=== PATIENT | male | born 1955 | race Caucasian/White ===

== ENCOUNTER → 2019-05-19 | Outpatient (CLI) | payer OTHER ==
[~2019-05-19] MED LIST: ADULT LOW DOSE81 MG PO; COLACE 100 MG100 MG; IBUPROFEN200 M2 PO; LISINOPRIL20 MG PO; MULTIVITAMINS PO; NORCO 5-325 TA1 EACH PO; RELAFEN750 MG PO; ROBAXIN 750 MG750 M1 PO; TOPROL XL25 MG PO; TRAMADOL 50 MG50 MG PO; TYLENOL P.M. E1 EAC3 PO; VALACYCLOVIR500 MG PO
== END ==
LOC: MRI 08:29
DX: M48.02 Spinal stenosis, cervical region (principal); M25.78 Osteophyte, vertebrae; M47.22 Other spondylosis with radiculopathy, cervical region; M50.121 Cervical disc disorder at C4-C5 level with radiculopathy

== ENCOUNTER → 2019-06-06 | Outpatient (CLI) | payer OTHER ==
[~2019-06-06] VITALS: Ht 182.9 cm; Wt 74.8 kg
[~2019-06-06] MED LIST changes: +ACETAMINOPHEN PO; +AMITRIPTYLINE H10 M3 PO; +LISINOPRIL-HCT1 EAC2 PO; -LISINOPRIL20 MG PO; +NEURONTIN 300300 M1 PO; +PROTONIX40 M2 PO; +ZANAFLEX4 M1 PO
[2019-06-06 09:19] VITALS: BP 133/83
--- NOTE | 2019-06-06 09:21 | NUR ---
Pain Clinic Assessment: 1. History of Osteoarthritis: Not Applicable History of Rheumatoid Arthritis: Not Applicable 2. Height: 6 ft. 0 in. 182.9 cm. Weight: 165.0 lb. oz. 74.844 kg. Patient's BMI: 22.4 3. Vital Signs: BP: 133/83 Pulse: 89 Resp: 14 Temp: 02 Sat: 96 ECG Mon: 4. Pain Intensity: 8 5. Fall Risk: Dizziness: N Needs help standing or walking: N Fallen in the last 3 months: N Fall risk comments: 6. Patient on Blood Thinner: None 7. History of Hypertension: Y 8. Opioid Therapy greater than 6 weeks: N Opiate Contract Signed: 9. Risk Assessment Tool Provided: Opioid Risk Tool 10. Functional Assessment Tool: 11. Recreational Drug Use: Past greater than 3 mos Drug Type: MARJUANA Tobacco Use: Never Smoker Tobacco Type: Amount or Packs/day: How Many Years: Alcohol Use: Yes Frequency: Weekly Quant: 1
--- NOTE | 2019-06-25 08:03 | HPC ---
[facility] [address] [place] [address] PAIN MANAGEMENT CONSULTATION Name: RONY ACUÑA Room #: REG PATTI PeckTonyJuan José.#: [id number] Admission: 06/06/19 Attend Phys: Rosalino Hernandez MD Discharge: Date of : 53 Report #: [id number] THIS REPORT FOR: cc: Francesco Littlejohn MD, Neal A. MD Brown,Rosalino Ennis MD ~ CC: Rosalino Littlejohn DATE OF SERVICE: 06/06/2019 CHIEF COMPLAINT: Neck pain. HISTORY OF PRESENT ILLNESS: The patient is a 64-year-old gentleman who has been referred to the pain clinic for evaluation of neck pain and discomfort. He has been experiencing some pain in his neck with radiation down into his left shoulder blade and arm. This has been problematic and worsening over the last few weeks. He has had surgery in the past. This was in 07/2011. This is for sharp pain in his right shoulder. He then started to notice pain in the left side and has made sleep more difficult. Notes that the pain is worse when he moves his neck. Long Term, he has noticed pain since 2001. Pain is worse when he is turning his neck or bending his head. not quite as problematic if he holds it still. Described as a steady discomfort with shooting discomfort and annoying sensation. Rates it as an 8/10 at this juncture. ALLERGIES: SULFA ANTIBIOTICS. CURRENT MEDICATIONS: Lisinopril 25 mg and Protonix 40 mg. Deltasone tablets taper 10 mg, Valtrex 500 mg, and tizanidine 4 mg p.r.n. muscle spasms. PAST MEDICAL HISTORY: Hypertension, Peacock's esophagus, cervical radiculopathy. PAST SURGICAL HISTORY: C6-C7 surgery per the patient report in 2011. REVIEW OF SYSTEMS: Generally unremarkable. Generally good health. IMAGING DATA: 1. MRI of the cervical spine dated 05/18/2019. C3-C4, there is a broad-based central disk osteophyte complex, which abuts the anterior spinal cord. AP diameter of the thecal sac is narrowed to 9 mm. consistent with mild central spinal stenosis. No neural foraminal narrowing. Findings unchanged. 2. At C4-C5, there is a generalized disk bulge with posterior lateral uncovertebral joint osteophyte formation and mild bilateral posterior facet degenerative changes. The disk bulge abuts the anterior aspect of the spinal cord and narrows the AP diameter of the thecal sac to 9 mm. No significant [facility] [address] [place] [address] PAIN MANAGEMENT CONSULTATION Name: RONY ACUÑA Room #: REG [facility].#: [id number] Admission: 06/06/19 Attend Phys: Rosalino Hernandez MD Discharge: Date of : 53 Report #: [id number] neural foraminal narrowing. Findings are unchanged. 3. At C5-C6, there is a mild, right posterior facet degenerative change. Minimal uncovertebral joint osteophyte formation. AP diameter of the thecal sac measures 11 mm. These findings are unchanged. 4. At C6-C7, the patient is status post anterior cervical spinal fusion with fixation plate and screws, which creates mild susceptibility artifact. The AP diameter of the thecal sac remains 11 mm. No significant central spinal stenosis or neural foraminal narrowing. 5. At C7-T1, there has been interval development of a broad-based central disk protrusion. AP dimensions of the thecal sac is narrowed to 6 mm consistent with severe central spinal stenosis. No significant neural foraminal narrowing is seen. PAIN CLINIC ASSESSMENT/PQRS: 1. The patient has a history of osteoarthritis in the neck area. He is not being treated for rheumatoid arthritis. 2. Height 6 feet, weight 165 pounds, BMI is 22.4. 3. Vital signs: Blood pressure 133/83, pulse 89, respiratory rate 14, room air saturation 96%. 4. Pain intensity 8/10. 5. Fall history: The patient has not fallen in the last 3 months. 6. Blood thinner. The patient is not on a blood thinning medication. 7. Hypertension. The patient is being treated for hypertension. 8. Opioids greater than 6 weeks. The patient is not on opioid regimen. 9. Risk assessment tool, low for opioid use. 10. Functional assessment tool 28/70. 11. Recreational drug use, the patient denies. 12. Smoker tobacco, the patient has never smoked. 13. Alcohol. The patient uses alcoholic beverages on a weekly basis. PHYSICAL EXAMINATION: GENERAL: The patient is a well-developed, well-nourished white male. Appears his stated age. He is alert and oriented x 3. His affect is appropriate. Speech is fluent. HEENT: Normocephalic, atraumatic. Extraocular eye muscles intact. Sclerae nonicteric. Mucous membranes are moist. NECK: Without adenopathy or JVD. EXTREMITIES: The patient does have some pain and discomfort on the left side with pain radiating down his arm on the left side to the hand with numbness in his fingers. Notes some weakness in this area. Notes that certain movements exacerbate his pain. Spurling test is positive with pressure on the left side with pain radiating down into his left arm. RECOMMENDATIONS: We discussed treatment options with the patient. At this juncture, we will try a conservative approach initially. The patient will try amitriptyline 10 mg 2 tablets at bedtime. He will also try gabapentin 300 mg 1 [facility] [address] [place] [address] PAIN MANAGEMENT CONSULTATION Name: RONY ACUÑA Room #: REG [facility]..#: [id number] Admission: 06/06/19 Attend Phys: Rosalino Hernandez MD Discharge: Date of : 53 Report #: [id number] p.o. t.i.d. Should his pain continue to be quite problematic, we would then consider the possibility of a cervical epidural steroid injection. A model was used to indicate the area of probable pathology. A point by point explanation of the patient's problem and findings were reviewed with him. He states that he understands. We would like to thank you for letting us participate in his care. We hope he continues to improve. <ELECTRONICALLY SIGNED> By: Rosalino Hernandez MD 06/25/19 0803 [id number] Rosalino Hernandez MD /nt
== END ==
LOC: PAIN 08:19
DX: M54.2 Cervicalgia (principal); Z88.2 Allergy status to sulfonamides; Z88.8 Allergy status to other drugs, medicaments and biological substances; Z79.899 Other long term (current) drug therapy

== ENCOUNTER → 2019-07-04 | Outpatient (CLI) | payer OTHER ==
[~2019-07-04] VITALS: Ht 182.9 cm; Wt 77.6 kg
[~2019-07-04] MED LIST changes: +AMITRIPTYLINE H25 M3 PO; +NEURONTIN300 MG PO
[2019-07-04 08:22] VITALS: BP 136/83
--- NOTE | 2019-07-04 08:31 | NUR ---
Pain Clinic Assessment: 1. History of Osteoarthritis: Not Applicable History of Rheumatoid Arthritis: Not Applicable 2. Height: 6 ft. 0 in. 182.9 cm. Weight: 171.0 lb. oz. 77.565 kg. Patient's BMI: 23.2 3. Vital Signs: BP: 136/83 Pulse: 80 Resp: 18 Temp: 02 Sat: 96 ECG Mon: 4. Pain Intensity: 8 5. Fall Risk: Dizziness: Y Needs help standing or walking: N Fallen in the last 3 months: N Fall risk comments: 6. Patient on Blood Thinner: None 7. History of Hypertension: Y 8. Opioid Therapy greater than 6 weeks: N Opiate Contract Signed: 9. Risk Assessment Tool Provided: Opioid Risk Tool 10. Functional Assessment Tool: 11. Recreational Drug Use: Past greater than 3 mos Drug Type: Tobacco Use: Never Smoker Tobacco Type: Amount or Packs/day: How Many Years: Alcohol Use: Yes Frequency: Quant:
--- NOTE | 2019-07-11 12:49 | HPC ---
[facility] [address] [place] [address] PAIN MANAGEMENT CONSULTATION Name: RONY ACUÑA Room #: REG PATTI PeckTonyJuan José.#: [id number] Admission: 07/04/19 Attend Phys: Rosalino Hernandez MD Discharge: Date of : 53 Report #: [id number] THIS REPORT FOR: cc: Francesco Littlejohn MD, Neal A. MD Brown,Rosalino Ennis MD ~ CC: Rosalino Littlejohn DATE OF SERVICE: 07/04/2019 CHIEF COMPLAINT: Cervical neck pain. HISTORY: The patient is a 64-year-old gentleman who has been seen in the pain clinic because of cervical discomfort. He has had surgery. He has a plate in the lower neck. Surgery was performed in about 2011. He has now noticed some recurrence of pain. He states that the pain is quite severe. Sometimes makes him feel dizzy when he stands. His pain awakens him at 2-3 o'clock in the morning. He has used Tylenol. He continues to use gabapentin. He notes that sometimes when he lies down it might be improved. It is encumber his ability to walk. He usually walks 1-1/2 miles per day. This has been curtailed because of this increased pain and discomfort. He has returned to the pain clinic with a desire to undergo a cervical epidural steroid injection. ALLERGIES: SULFA AND ANTIBIOTICS. CURRENT MEDICATIONS: Lisinopril 25 mg, Protonix 40 mg, Valtrex 500 mg, and tizanidine 4 mg for muscle spasms. PAIN CLINIC ASSESSMENT AND PQRS: 1. History of osteoarthritis. The patient is not being treated for osteoarthritis. He is not being treated for rheumatoid arthritis. 2. Height 6 feet 0, weight 171 pounds, BMI is 23.2. 3. Vital Signs: Blood pressure 136/83, pulse 80, respiratory rate 16, room air saturation is 96%. 4. Pain intensity 7-8/10. 5. Fall risk. The patient has not fallen since we saw him last. 6. Blood thinner. The patient is not on a blood thinning medication. 7. Hypertension. The patient is being treated for hypertension. 8. Opioids greater than 6 weeks. The patient is not on current opioid regimen. 9. Risk assessment tool, low for opioid use. 10. Functional assessment tool . 11. Recreational drug use: The patient has never smoked. 12. Alcohol. The patient denies use of more than occasional alcohol intake and now with occasional alcohol intake. [facility] [address] [place] [address] PAIN MANAGEMENT CONSULTATION Name: RONY ACUÑA Room #: REG [facility]#: [id number] Admission: 07/04/19 Attend Phys: Rosalino Hernandez MD Discharge: Date of : 53 Report #: [id number] PHYSICAL EXAMINATION: GENERAL: The patient is a well-developed, well-nourished white male. He appears his stated age. He is alert and oriented x 3. His affect is appropriate. Speech is fluent. HEENT: Normocephalic, atraumatic. Extraocular eye muscles intact. Sclerae nonicteric. Mucous membranes are moist. NECK: Without adenopathy or JVD. The patient has a well-healed scar on the anterior portion of his neck. EXTREMITIES: He complains of pain and discomfort in the upper extremity with pain that is radiating down to his arms to the left side involving his hand with numbness and tingling in his fingers. IMPRESSION: 1. Cervical radiculopathy. 2. Hypertension. RECOMMENDATIONS: We discussed treatment options with the patient. Risks and benefits of a cervical epidural steroid injection were discussed. Possible complications of the procedure were reviewed. They include but are not limited to infection, worsening pain, no improvement in pain, nerve damage, spinal headache, bleeding. The patient elects to proceed. We again discussed with him the problems with opioid injections given that we are in the COVID-19 pandemic. We explained to the patient that steroids can decrease one's immune system secondary to suppression. This might make it more problematic should the patient become infected with the coronavirus at this juncture. He feels that his pain is so bad that he is willing to take the chance. He is staying socially isolated. PROCEDURE NOTE: The patient was taken to the procedure area. He was then assisted in getting on examination table. His back was sterilely prepped with a Betadine solution. A 0.25% bupivacaine was infiltrated. A 17-gauge Tuohy with loss of resistance technique at the C7-T1 interspace was performed. Fluoroscopy using anterior and posterior as well as lateral viewing were implemented. There were no complaints during the procedure. The patient was then taken to the procedure area. He remained in the area for an appropriate amount of time. He will continue to socially isolate. We would like to thank you for letting us participate in his care. Hope he continues to improve. A script for amitriptyline 25 mg at bedtime has been provided. The patient will also continue with gabapentin 300 mg as tolerated. We would like to thank you for letting us participate in his care. <ELECTRONICALLY SIGNED> By: Rosalino Hernandez MD 07/11/19 1249 [id number] Rosalino Hernandez MD /linsey
== END | disposition home or self-care (01) ==
LOC: PAIN 06:43
DX: M54.12 Radiculopathy, cervical region (principal); G89.29 Other chronic pain; I10 Essential (primary) hypertension; Z98.890 Other specified postprocedural states; Z79.899 Other long term (current) drug therapy; Z88.2 Allergy status to sulfonamides; Z88.8 Allergy status to other drugs, medicaments and biological substances

== ENCOUNTER → 2019-09-03 | Outpatient (CLI) | payer OTHER ==
[~2019-09-03] VITALS: Ht 182.9 cm; Wt 79.8 kg
[2019-09-03 13:41] VITALS: BP 126/78
--- NOTE | 2019-09-03 13:57 | NUR ---
Pain Clinic Assessment: 1. History of Osteoarthritis: NECK History of Rheumatoid Arthritis: Not Applicable 2. Height: 6 ft. 0 in. 182.9 cm. Weight: 176.0 lb. oz. 79.833 kg. Patient's BMI: 23.9 3. Vital Signs: BP: 126/78 Pulse: 65 Resp: 14 Temp: 02 Sat: 97 ECG Mon: 4. Pain Intensity: 1 5. Fall Risk: Dizziness: Y Needs help standing or walking: N Fallen in the last 3 months: N Fall risk comments: 6. Patient on Blood Thinner: None 7. History of Hypertension: Y 8. Opioid Therapy greater than 6 weeks: N Opiate Contract Signed: 9. Risk Assessment Tool Provided: Opioid Risk Tool 10. Functional Assessment Tool: 11. Recreational Drug Use: Past greater than 3 mos Drug Type: Tobacco Use: Never Smoker Tobacco Type: Amount or Packs/day: How Many Years: Alcohol Use: Yes Frequency: Weekly Quant: 1-2
--- NOTE | 2019-09-19 08:57 | HPC ---
[facility] [address] [address] PAIN MANAGEMENT CONSULTATION Name: RONY ACUÑA Room #: REG PATTI [facility].#: [id number] Admission: 09/03/19 Attend Phys: Rosalino Hernandez MD Discharge: Date of : 53 Report #: [id number] THIS REPORT FOR: cc: Francesco Littlejohn MD, Neal A. MD Brown, N. Wayne MD ~ CC: Rosalino Littlejohn MD DATE OF SERVICE: 09/03/2019 CHIEF COMPLAINT: Cervical neck pain. HISTORY: The patient is a 64-year-old gentleman who has been seen in the pain clinic because of pain and discomfort involving the neck. He returns today indicating that his pain has improved since the cervical epidural steroid injection. He rates his pain as a 1/10. Does have some pain that goes down to his left shoulder and down to his left arm into his hand. Overall, things have improved. He denies any new injury. He feels that he still has some discomfort with turning his head while driving. Overall, things are going reasonably well. He feels that he is sleeping reasonably well and would consider taking less amitriptyline. He is having less pain and awakening him at night. ALLERGIES: SULFA AND ANTIBIOTICS. CURRENT MEDICATIONS: Lisinopril 25 mg, Protonix 40 mg, Valtrex 500 mg, tizanidine 4 mg for muscle spasms, amitriptyline 25 mg at bedtime, and Neurontin 300 mg b.i.d. PAIN CLINIC ASSESSMENT/PQRS: 1. History of osteoarthritis. The patient is not being treated for osteoarthritis. He is not being treated for rheumatoid arthritis. 2. Height 6 feet, weight 176 pounds, BMI is 23.9. 3. Vital signs: Blood pressure 126/78, pulse 65, respiratory rate 18, room air saturation is 97%. 4. Pain intensity 03/07. 5. Fall history: The patient has not fallen in the last 3 months. 6. Blood thinner. The patient is not on a blood thinning medication. 7. Hypertension. The patient is being treated for hypertension. 8. Opioids greater than 6 weeks. The patient is not receiving opioids on a regular basis. 9. Risk assessment tool, low for opioid use. 10. Functional assessment tool, . 11. Recreational drug use. The patient denies. 12. Tobacco: The patient has never smoked. [facility] [address] [place] [address] PAIN MANAGEMENT CONSULTATION Name: RONY ACUÑA Room #: REG [facility]#: [id number] Admission: 09/03/19 Attend Phys: Rosalino Hernandez MD Discharge: Date of : 53 Report #: [id number] 13. Alcohol: The patient drinks 1-2 alcoholic beverages weekly. PHYSICAL EXAMINATION: GENERAL: The patient is a well-developed, well-nourished white male. Appears his stated age. He is alert and oriented x 3. His affect is appropriate. Speech is fluent. HEENT: Normocephalic, atraumatic. Extraocular eye muscles intact. Sclerae nonicteric. Mucous membranes are moist. The patient is wearing a mask. NECK: Without adenopathy. The patient has a well-healed scar in the anterior portion of his neck. Has less pain and less discomfort in the left shoulder and left arm. EXTREMITIES: Lower extremity muscle strength judged to be 5/5 for the major muscle groups in the lower extremity. The patient without significant scoliosis, kyphosis, or lordosis. IMPRESSION: 1. Improved cervical radicular pain after cervical epidural steroid injection. 2. Hypertension. RECOMMENDATIONS: We discussed treatment options with the patient. At this juncture, he has noticed an improvement in his pain. He rates it as 1/10. He feels that he is sleeping reasonably well. We will have the patient decrease the amitriptyline from 25 mg at bedtime to 10 mg. Hopefully, this will continue to help him with pain management as well as sleep. The patient will also continue with Neurontin 300 mg b.i.d. He will call us if he has any concerns. We would like to thank you for letting us participate in his care. Hope he continues to improve. <ELECTRONICALLY SIGNED> By: Rosalino Hernandez MD 09/19/19 0857 [id number] Rosalino Hernandez MD /[facility]
== END ==
LOC: PAIN 07:00
PROVIDERS: ATTEND Anesthesiology Pain Medicine
DX: M54.12 Radiculopathy, cervical region (principal); I10 Essential (primary) hypertension; Z88.2 Allergy status to sulfonamides; Z88.8 Allergy status to other drugs, medicaments and biological substances; Z79.899 Other long term (current) drug therapy

== ENCOUNTER → 2019-10-08 | Outpatient (CLI) | payer OTHER ==
[~2019-10-08] VITALS: Ht 182.9 cm; Wt 80.7 kg
[2019-10-08 08:57] VITALS: BP 141/72
--- NOTE | 2019-10-08 09:22 | NUR ---
Pain Clinic Assessment: 1. History of Osteoarthritis: NECK History of Rheumatoid Arthritis: Not Applicable 2. Height: 6 ft. 0 in. 182.9 cm. Weight: 178.0 lb. oz. 80.740 kg. Patient's BMI: 24.1 3. Vital Signs: BP: 141/72 Pulse: 63 Resp: 16 Temp: 02 Sat: 96 ECG Mon: 4. Pain Intensity: 2, AT TIMES AN 8. 5. Fall Risk: Dizziness: N Needs help standing or walking: N Fallen in the last 3 months: N Fall risk comments: 6. Patient on Blood Thinner: None 7. History of Hypertension: Y 8. Opioid Therapy greater than 6 weeks: N Opiate Contract Signed: 9. Risk Assessment Tool Provided: Opioid Risk Tool 10. Functional Assessment Tool: 11. Recreational Drug Use: Past greater than 3 mos Drug Type: MARIJUANA Tobacco Use: Never Smoker Tobacco Type: Amount or Packs/day: How Many Years: Alcohol Use: Yes Frequency: Monthly Quant: 2
--- NOTE | 2019-10-24 12:54 | HPC ---
[facility] [address] [place] [address] PAIN MANAGEMENT CONSULTATION Name: RONY ACUÑA Room #: REG PATTI Tony.#: [id number] Admission: 10/08/19 Attend Phys: Rosalino Hernandez MD Discharge: Date of : 53 Report #: [id number] THIS REPORT FOR: cc: Francesco Littlejohn MD, Neal A. MD Brown,Rosalino Ennis MD ~ CC: Rosalino Littlejohn DATE OF SERVICE: 10/08/2019 CHIEF COMPLAINT: "Things were going well after the last injection, but the pain has started to return, I would like to have another injection." HISTORY: The patient is a 64-year-old gentleman, who has been followed in the Pain Clinic because of pain. It involves his neck. He has had surgery in the past with instrumentation in the cervical area. At this point, he has returned and has noted some increasing pain involving the left shoulder with pain radiating down to his neck, arm and into his hands. This pain has been ongoing in the cervical area for some time. It initially started in 2001. He has since undergone cervical intervention with instrumentation. He rates his pain today as 2 at times, but can rise to the level of 8. Notes that the pain has exaggerated and increased with turning his head. Driving can be more problematic with extension of his arm. He was able to sleep better with his use of amitriptyline. He would like to proceed today with another cervical epidural steroid injection. ALLERGIES: SULFA, ANTIBIOTICS. CURRENT MEDICATIONS: Lisinopril 25 mg, Protonix 40 mg, Valtrex 500 mg, tizanidine 4 mg, amitriptyline 25 mg at bedtime, Neurontin 300 mg b.i.d. PAIN CLINIC ASSESSMENT AND PQRS: 1. The patient has a history of osteoarthritis. He is not being treated for rheumatoid arthritis. 2. Height 6 feet, weight 179 pounds, BMI is 24. 3. Vital Signs: Blood pressure is 141/72, pulse is irregular, respiratory rate 16, room air saturation 96%. 4. Pain intensity: 2 at times; over the past week, it has increased and can rise to a level 8/10. 5. Fall risk: The patient has not fallen in the last 3 months. 6. Blood thinner: The patient is not on a blood thinning medication. 7. Hypertension: The patient is being treated for hypertension. 8. Opioids greater than 6 weeks: The patient receives medication from one source from the Pain Clinic. 9. Risk assessment tool: Reviewed. Opioid [place] [address] PAIN MANAGEMENT CONSULTATION Name: RONY ACUÑA [id number] Admission: 10/08/19 Attend Phys: Rosalino Hernandez MD Discharge: Date of : 53 Report #: [id number] 10. Functional assessment tool: . 11. Recreational drug use: The patient has used marijuana in the past. 12. Tobacco: The patient denies use of tobacco. 13. Alcohol: The patient drinks about 2 alcoholic beverages monthly. PHYSICAL EXAMINATION: GENERAL: The patient is a well-developed, well-nourished, white male. Appears his stated age. He is alert and oriented x 3. His affect is appropriate. Speech is fluent. HEENT: Normocephalic, atraumatic. Extraocular eye muscles intact. Sclerae nonicteric. Mucous membranes are moist. The patient is wearing a facial covering. NECK: Without adenopathy or JVD. The patient does have some pain and discomfort in the left arm with pain radiating down the shoulder, arm, forearm, and down into his fingers with numbness, tingling, and sensory changes. HEART: regular ABDOMEN: Nontender. MUSCULOSKELETAL: Lower extremity muscle strength is judged to be 5/5 for the major muscle groups in the lower extremity. The patient is without significant scoliosis, kyphosis or lordosis. IMPRESSION: 1. Cervical radiculopathy with numbness and tingling down the left arm, forearm and into the fingers. 2. Hypertension. RECOMMENDATIONS: We discussed treatment options with the patient. Risks and benefits of an epidural steroid injection were discussed. Possible complications of the procedure were again reviewed. They include but are not limited to infection, worsening pain, no improvement in pain, nerve damage, and the patient elects to proceed. PROCEDURE NOTE: The patient was taken to the procedure area. He was then assisted in getting on the examination table. His back was sterilely prepped with betadine solution. 0.25% bupivacaine was infiltrated. A 17-gauge Tuohy with loss of resistance technique was used to gain access at C7-T1 interspace. A total of 120 mg triamcinolone was injected. The patient tolerated the procedure well. He remained in the Pain Clinic for an appropriate amount of time. He will follow up in the future as needed. We would like to thank you for letting us participate in his care. We hope he continues to improve. The patient will take Elavil. He has 10 mg tablets, [facility] [address] [place] [address] PAIN MANAGEMENT CONSULTATION Name: RONY ACUÑA Room #: DEBBI Veliz#: [id number] Admission: 10/08/19 Attend Phys: Rosalino Hernandez MD Discharge: Date of : 53 Report #: [id number] which he has been using. He will take 2 tablets at bedtime should he need. Hopefully, this will continue to help with sleep as well as pain control. <ELECTRONICALLY SIGNED> By: Rosalino Hernandez MD 10/24/19 [id number] Rosalino Hernandez MD /nt
== END ==
LOC: PAIN 06:52
PROVIDERS: ATTEND Anesthesiology Pain Medicine
DX: M54.12 Radiculopathy, cervical region (principal); I10 Essential (primary) hypertension; Z79.899 Other long term (current) drug therapy; Z88.8 Allergy status to other drugs, medicaments and biological substances; Z72.89 Other problems related to lifestyle

== ENCOUNTER → 2019-11-28 | Outpatient (CLI) | payer OTHER | LOC: CAT 15:02 | PROVIDERS: ATTEND Family Medicine | DX: Z13.6 Encounter for screening for cardiovascular disorders (principal); I25.10 Atherosclerotic heart disease of native coronary artery without angina pectoris; E78.00 Pure hypercholesterolemia, unspecified ==

== ENCOUNTER → 2019-11-28 | Outpatient (CLI) | payer OTHER ==
[~2019-11-28] MED LIST changes: +MOBIC15 MG PO; +ROSUVASTATIN CA20 MG PO
== END ==
LOC: SJCVC 15:51
PROVIDERS: ATTEND Internal Medicine Cardiovascular Disease
DX: R94.31 Abnormal electrocardiogram [ECG] [EKG] (principal); I45.10 Unspecified right bundle-branch block; I49.1 Atrial premature depolarization; I10 Essential (primary) hypertension; E78.5 Hyperlipidemia, unspecified; I71.2 Thoracic aortic aneurysm, without rupture; Z79.899 Other long term (current) drug therapy

== ENCOUNTER → 2019-12-05 | Outpatient (CLI) | payer OTHER ==
[~2019-12-05] VITALS: Ht 182.9 cm; Wt 79.7 kg
[2019-12-05 08:34] VITALS: BP 130/76
--- NOTE | 2019-12-05 08:47 | NUR ---
Pain Clinic Assessment: 1. History of Osteoarthritis: NECK History of Rheumatoid Arthritis: DENIES 2. Height: 6 ft. 0 in. 182.9 cm. Weight: 175.8 lb. oz. 79.742 kg. Patient's BMI: 23.8 3. Vital Signs: BP: 130/76 Pulse: 87 Resp: 18 Temp: 02 Sat: 96 ECG Mon: 4. Pain Intensity: 7 5. Fall Risk: Dizziness: Y Needs help standing or walking: N Fallen in the last 3 months: N Fall risk comments: ORTHOSTATIC ORTHO 6. Patient on Blood Thinner: None 7. History of Hypertension: Y 8. Opioid Therapy greater than 6 weeks: N Opiate Contract Signed: 9. Risk Assessment Tool Provided: Opioid Risk Tool 10. Functional Assessment Tool: 11. Recreational Drug Use: Past greater than 3 mos Drug Type: Tobacco Use: Never Smoker Tobacco Type: Amount or Packs/day: How Many Years: Alcohol Use: Yes Frequency: Weekly Quant: BEER ON WEEKEND WATCHING SPORTS
--- NOTE | 2019-12-19 08:11 | HPC ---
[facility] [address] [place] [address] PAIN MANAGEMENT CONSULTATION Name: RONY ACUÑA Room #: REG PATTI Rudolph.#: [id number] Admission: 12/05/19 Attend Phys: Rosalino Hernandez MD Discharge: Date of : 53 Report #: [id number] CC: Rosalino Littlejohn DATE OF SERVICE: 12/05/2019 CHIEF COMPLAINT: Sore left arm. HISTORY: The patient is a 64-year-old gentleman who has been followed in the pain clinic. As you may recall, he has been experiencing pain and discomfort in his neck and arm. He has undergone cervical epidural steroid injections. He returns today and still is having some soreness in his left arm. He rates his pain as a 7/10. He is having some pain that radiates down into his left shoulder and down into his hands. He initially had surgery in the posterior area. Pain started in 2001. He does have a plate and instrumentation in the cervical area. He ____ glean some benefit from the previous cervical epidural steroid injections. ALLERGIES: SULFA, ANTIBIOTICS. CURRENT MEDICATIONS: Lisinopril 25 mg, Protonix 40 mg, Valtrex 500 mg, tizanidine 4 mg, amitriptyline 25 mg, Neurontin 300 mg b.i.d. PAIN CLINIC ASSESSMENT AND PQRS: 1. History of osteoarthritic changes with changes in his neck, status post surgery. 2. History of rheumatoid arthritis: The patient denies. 3. Height 6 feet 0 inches, weight 175 pounds, BMI is 23.8. 4. Vital signs: Blood pressure 130/76, pulse 87, respiratory rate 18, room air saturation 96%. 5. Pain intensity 09/04. 6. Fall history: The patient has not fallen. 7. Blood thinner. The patient is not on a blood thinning medication. 8. Hypertension. The patient is being treated for hypertension. 9. Opioids therapy greater than 6 weeks. The patient receives medication from one source. 10. Functional assessment tool . 11. Recreational drug use. The patient denies. 12. Tobacco: The patient has never smoked. 13. Alcohol: The patient drinks beer on the weekend when he is watching the sporting events. PHYSICAL EXAMINATION: GENERAL: The patient is a well-developed, well-nourished white male. Appears his stated age. He is alert and oriented x 3. His affect is appropriate. Speech is fluent. HEENT: Normocephalic, atraumatic. Extraocular eye muscles are intact. Sclerae nonicteric. The patient is wearing a facial covering. NECK: Without adenopathy or JVD. The patient does have some pain and discomfort in his left arm and pain that radiates down into his shoulder to his arm, forearm and down to his fingers with numbness, tingling and sensory changes. HEART: Regular rate. ABDOMEN: Nontender. MUSCULOSKELETAL: Upper extremity muscle strength judged to be 5/5 for the major muscle groups in the ____ extremity. The patient without significant scoliosis, kyphosis or lordosis. IMPRESSION: 1. Cervical radiculopathy with numbness and tingling involving the left side, forearm and down into his fingers. 2. Hypertension. RECOMMENDATIONS: We discussed treatment options with the patient. At this juncture, we will try amitriptyline. He will have 10 mg tablets and take 1 p.o. at bedtime. He will also use Neurontin 300 mg 1 p.o. b.i.d. We will have the patient try meloxicam 15 mg 1 p.o. daily. He will also take tramadol 50 mg 1 p.o. b.i.d. We would like to thank you for letting us participate in his care. Hopefully, things will continue to improve as time goes on. <ELECTRONICALLY SIGNED> By: Rosalino Hernandez MD 12/19/19 0811 [id number] 1421 Rosalino Hernandez MD /nt
== END ==
LOC: PAIN 06:56
PROVIDERS: ATTEND Anesthesiology Pain Medicine
DX: M54.12 Radiculopathy, cervical region (principal); I10 Essential (primary) hypertension; Z87.39 Personal history of other diseases of the musculoskeletal system and connective tissue; Z88.8 Allergy status to other drugs, medicaments and biological substances; Z79.899 Other long term (current) drug therapy

== ENCOUNTER → 2020-01-13 | Outpatient (CLI) | payer OTHER | LOC: SJCVCIMAG 14:08 | PROVIDERS: ATTEND Internal Medicine Cardiovascular Disease | DX: R06.00 Dyspnea, unspecified (principal); R53.83 Other fatigue; R00.2 Palpitations; R93.1 Abnormal findings on diagnostic imaging of heart and coronary circulation; I25.10 Atherosclerotic heart disease of native coronary artery without angina pectoris; E78.5 Hyperlipidemia, unspecified; Z79.899 Other long term (current) drug therapy ==

== ENCOUNTER → 2020-01-28 | Outpatient (CLI) | payer OTHER | LOC: LAB 10:59 | PROVIDERS: ATTEND Nurse Practitioner | DX: Z20.828 Contact with and (suspected) exposure to other viral communicable diseases (principal) ==

== ENCOUNTER → 2020-03-10 | Outpatient (CLI) | payer OTHER ==
[~2020-03-10] VITALS: Ht 182.9 cm; Wt 80.7 kg
[~2020-03-10] MED LIST changes: +ASA81BEC PO; +COQ-10100 MG PO; +GARLIC1 EACH PO; +ROSUVASTATIN CA10 MG PO; +TURMERIC 500 M1 EACH PO; +VITAMIN C1000 MG PO; +VITAMIN D3 COM1 EACH PO
[2020-03-10 09:41] VITALS: BP 130/83
--- NOTE | 2020-03-10 09:52 | NUR ---
Pain Clinic Assessment: 1. History of Osteoarthritis: NECK History of Rheumatoid Arthritis: DENIES 2. Height: 6 ft. 0 in. 182.9 cm. Weight: 177.8 lb. oz. 80.650 kg. Patient's BMI: 24.1 3. Vital Signs: BP: 130/83 Pulse: 76 Resp: 14 Temp: 02 Sat: 98 ECG Mon: 4. Pain Intensity: 0 5. Fall Risk: Dizziness: N Needs help standing or walking: N Fallen in the last 3 months: N Fall risk comments: ORTHOSTATIC ORTHO 6. Patient on Blood Thinner: None 7. History of Hypertension: Y 8. Opioid Therapy greater than 6 weeks: N Opiate Contract Signed: 9. Risk Assessment Tool Provided: O-LOW 10. Functional Assessment Tool: 11. Recreational Drug Use: Past greater than 3 mos Drug Type: Tobacco Use: Never Smoker Tobacco Type: Amount or Packs/day: How Many Years: Alcohol Use: Yes Frequency: Monthly Quant: 3
== END ==
LOC: PAIN 06:49
PROVIDERS: ATTEND Anesthesiology Pain Medicine
DX: M54.12 Radiculopathy, cervical region (principal); R20.2 Paresthesia of skin; I10 Essential (primary) hypertension

== ENCOUNTER → 2020-06-04 | Outpatient (CLI) | payer OTHER ==
[~2020-06-04] VITALS: Ht 182.9 cm; Wt 78.0 kg
[~2020-06-04] MED LIST changes: +AMITRIPTYLINE H10 M1 PO; +NEURONTIN 300M300 M2 PO
[2020-06-04 09:37] VITALS: BP 142/85
--- NOTE | 2020-06-04 09:40 | NUR ---
Pain Clinic Assessment: 1. History of Osteoarthritis: NECK History of Rheumatoid Arthritis: DENIES 2. Height: 6 ft. 0 in. 182.9 cm. Weight: 172.0 lb. oz. 78.019 kg. Patient's BMI: 23.3 3. Vital Signs: BP: 142/85 Pulse: 46 Resp: 18 Temp: 02 Sat: 98 ECG Mon: 4. Pain Intensity: 0 5. Fall Risk: Dizziness: N Needs help standing or walking: N Fallen in the last 3 months: N Fall risk comments: ORTHOSTATIC ORTHO 6. Patient on Blood Thinner: None 7. History of Hypertension: Y 8. Opioid Therapy greater than 6 weeks: N Opiate Contract Signed: 9. Risk Assessment Tool Provided: O-LOW 10. Functional Assessment Tool: 11. Recreational Drug Use: Past greater than 3 mos Drug Type: Tobacco Use: Never Smoker Tobacco Type: Amount or Packs/day: How Many Years: Alcohol Use: Yes Frequency: Monthly Quant: EVERY OTHER WEEK HAS ONE BEER
--- NOTE | 2020-06-08 08:29 | HPC ---
[facility] [address] [place] [address] PAIN MANAGEMENT CONSULTATION Name: RONY ACUÑA Room #: REG ULISESGhulam Veliz#: [id number] Admission: 06/04/20 Attend Phys: Madeline Dominguez Discharge: Date of : 53 Report #: [id number] THIS REPORT FOR: cc: Francesco Littlejohn MD, Neal A. MD Hocker,Madeline BILLINGS ~ DATE OF SERVICE: 06/04/2020 CHIEF COMPLAINT: Cervical radiculopathy. HISTORY OF PRESENT ILLNESS: This is a very pleasant 65-year-old gentleman who returns to the pain clinic today for renewal of his medications. Today, the patient reports having no pain. He believes his medications are working very well in controlling it. Since his last visit with us, he did try to decrease his gabapentin and his amitriptyline, though it was unsuccessful. The patient reports after 2 days, his pain returned in his left neck and shoulder and he resumed his gabapentin twice a day, amitriptyline nightly as well as meloxicam. Today, he reports being active at his [facility] [place] [facility] and it did not cause any arm and neck pain. He did, however, experience some low back pain that he believes was from being "out of shape." The patient reports the pain in his lower back lasted several days as he believes it was musculature in nature and has since resolved. The patient would like to continue his current regimen and is requesting refills today. ALLERGIES: SULFA. CURRENT LIST OF MEDICATIONS: Meloxicam 15 mg daily, gabapentin 300 mg b.i.d., amitriptyline 10 mg at bedtime, tramadol p.r.n., turmeric, CoQ10, vitamin D3, vitamin C, garlic, Crestor, aspirin, valacyclovir, lisinopril and hydrochlorothiazide. PQRS: 1. He has history of osteoarthritis in his neck. Denies any rheumatoid arthritis. 2. Height is 6 feet, weight is 172, BMI is 23. 3. Vital signs 142/85, pulse is 46, respirations 18, oxygen sat is 98%. 4. Pain score 0/10. 5. Denies dizziness, does not need help walking or standing, has not fallen in the last 3 months. 6. The patient is not on any blood thinners, but does have a history of hypertension. 7. He is not on any opioids and no opioid signed contract is on our chart. 8. Risk assessment is low. Functional assessment is 0. 9. Recreational drug use in the past. He is not a smoker and does drink alcohol every other week occasionally. [address] [address] PAIN MANAGEMENT CONSULTATION Name: RONY ACUÑA Room #: REG CLGhulam Veliz#: [id number] Admission: 06/04/20 Attend Phys: Madeline Dominguez Discharge: Date of : 53 Report #: [id number] According to the prescription monitoring system, he is not filling any opioids. He does fill gabapentin on a regular basis. PHYSICAL EXAMINATION: GENERAL: This is alert and orientated, pleasant 65-year-old gentleman who denies pain today. He is a good historian. He is well-developed, well-nourished and, well-hydrated. HEENT: Normocephalic, atraumatic. Extraocular eye muscles are intact. He is wearing a mask. NECK: Without adenopathy or JVD. Occasional tenderness in his cervical spine that radiates into his left arm, but no radicular symptoms noted today. MUSCULOSKELETAL: The patient is without significant scoliosis, kyphosis or lordosis. His upper and lower extremity strength is 5/5. IMPRESSION: 1. Cervical radiculopathy. 2. Hypertension. PLAN: 1. We discussed treatment options with the patient today. At this juncture, the patient would like to continue on his current regimen. He did try to decrease his medications, though he was unsuccessful and his pain did return. We will continue him on gabapentin 300 mg b.i.d., quantity 60 with 5 additional refills will be sent as well as amitriptyline 10 mg, #30 for 5 refills; meloxicam 15 mg, #30 with 5 additional refills. I did discuss with the patient that he may follow up with us in 6 months or he may decide to get these medications from his primary care doctor and only come see us on an as needed basis if he needs an injection. At this point, the patient would like to continue to come to our office for medication renewal. 2. We did discuss if the patient continues to be pain free within the next month or two, he may try to taper his medications again to see if it is successful. The patient was instructed how to decrease slowly, but if pain returns, he may continue at his current dosages. Time spent with the patient in consultation, reviewing recent studies and clinical notes, physical examination and correlation of findings and medical documentation to determine possible treatments 15 minutes. Time spent preparing for appointment reviewing and prescription monitoring reports, reviewing previous records and proposed treatment options 4 minutes. Time spent preparing and sending electronic prescriptions with collaborating physician, Dr. Jaden Hernandez, documentation of visit and plan of treatment, [address] [address] PAIN MANAGEMENT CONSULTATION Name: [facility] Room #: [facility] Keren#: [id number] Admission: 06/04/20 Attend Phys: Madeline Dominguez Discharge: Date of : 53 Report #: [id number] Total time spent 23 minutes. <ELECTRONICALLY SIGNED> By: Madeline Dominguez 06/08/20 0829 1121 1301 Madeline Dominguez /linsey
== END ==
LOC: PAIN 06:58
PROVIDERS: ATTEND Clinical Nurse Specialist Adult Health
DX: M54.16 Radiculopathy, lumbar region (principal); I10 Essential (primary) hypertension; Z79.891 Long term (current) use of opiate analgesic; Z79.899 Other long term (current) drug therapy

== ENCOUNTER → 2020-12-01 | Outpatient (CLI) | payer OTHER ==
[~2020-12-01] VITALS: Ht 182.9 cm; Wt 76.3 kg
[2020-12-01 08:53] VITALS: BP 109/74
--- NOTE | 2020-12-01 09:03 | NUR ---
Pain Clinic Assessment: 1. History of Osteoarthritis: NECK History of Rheumatoid Arthritis: DENIES 2. Height: 6 ft. 0 in. 182.9 cm. Weight: 168.2 lb. oz. 76.295 kg. Patient's BMI: 22.8 3. Vital Signs: BP: 109/74 Pulse: 60 Resp: 14 Temp: 02 Sat: 97 ECG Mon: 4. Pain Intensity: 0 5. Fall Risk: Dizziness: Y Needs help standing or walking: N Fallen in the last 3 months: N Fall risk comments: ORTHOSTATIC ORTHO 6. Patient on Blood Thinner: None 7. History of Hypertension: Y 8. Opioid Therapy greater than 6 weeks: N Opiate Contract Signed: 9. Risk Assessment Tool Provided: O-LOW 10. Functional Assessment Tool: 11. Recreational Drug Use: Past greater than 3 mos Drug Type: Tobacco Use: Never Smoker Tobacco Type: Amount or Packs/day: How Many Years: Alcohol Use: Yes Frequency: Weekly Quant: BEER ON THE WEEKENDS
--- NOTE | 2020-12-02 08:22 | HPC ---
[facility] [address] [place] [address] PAIN MANAGEMENT CONSULTATION Name: RONY ACUÑA [facility] #: [facility] CenterTony.#: [id number] Admission: 12/01/20 Attend Phys: Madeline Dominguez Discharge: Date of : 53 Report #: [id number] THIS REPORT FOR: cc: Francesco Littlejohn MD, Neal A. MD Hocker,Madeline BILLINGS ~ cc: Francesco Littlejohn MD, Stone Hernandez MD DATE OF SERVICE: 12/01/2020 CHIEF COMPLAINT: Cervical radiculopathy. HISTORY OF PRESENT ILLNESS: This is a very pleasant 65-year-old gentleman who returns to the pain clinic today for renewal of his medications that he uses to help treat his cervical radicular symptoms. The patient reports that since he has started his current regimen of amitriptyline, gabapentin, meloxicam, he has had no pain or twinges of pain in his left shoulder and arm. He is very thankful for this regimen and feels it is working quite well. He denies any side effects of somnolence or constipation. He did try to decrease his gabapentin and his pain returned within 2 days in his left shoulder and upper arm. He is able to be as active as he would like. 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 He also feels that he sleeps better with the amitriptyline at bedtime. Today, he would like to continue with this current regimen. ALLERGIES: SULFA. CURRENT MEDICATIONS: Meloxicam 15 mg daily, metoprolol 25 mg at bedtime, amitriptyline 10 mg at bedtime, gabapentin 300 mg b.i.d., tramadol p.r.n., turmeric, CoQ10, multivitamin, D3, vitamin C, garlic, Crestor, aspirin, valacyclovir and lisinopril/hydrochlorothiazide. PQRS: 1. He has osteoarthritic changes in his neck. Denies any rheumatoid arthritis. Height is 6 feet, weight is 168, BMI is 22. 2. Vital signs 109/74, pulse is 60, respirations 14, oxygen sat is 97%. 3. Pain score is 0. 4. Has slight dizziness if he stands too quickly. Denies any falls or need for assistance with ambulation. 5. He does not take any blood thinners. He does take medications for hypertension. 6. Opioid therapy is not on. His risk assessment is low. Functional assessment zero. Recreational drug use in the past, but greater than 3 months. He is not a smoker and occasionally drinks alcohol. PHYSICAL EXAMINATION: GENERAL: This is alert and orientated, very pleasant 65-year-old gentleman. [facility] [address] [place] [address] PAIN MANAGEMENT CONSULTATION Name: RONY ACUÑA Room #: REG PATTI Veliz#: [id number] Admission: 12/01/20 Attend Phys: Madeline Dominguez Discharge: Date of : 53 Report #: [id number] The patient shows no signs of overmedicated. He is rating his pain score at 0. HEENT: Normocephalic, atraumatic. Extraocular eye muscles are intact. He is wearing a facial covering for COVID. NECK: Without adenopathy or JVD. MUSCULOSKELETAL: His upper extremity strength is symmetrical at 5/5 with no discomfort radiating in his left arm or shoulder today. The patient is without significant scoliosis, kyphosis, or lordosis. Upper and lower extremity strength is symmetrical. DIAGNOSES: 1. Cervical radiculopathy. 2. Hypertension. 3. Adjunct medications used for medical management. PLAN: 1. We discussed treatment options with the patient today. We would like to continue him on his current regimen of gabapentin 180 mg twice a day, #90 with one refill will be sent, amitriptyline 10 mg at bedtime, #90 with 1 additional refill, meloxicam 15 mg, #90 with 1 additional refill will be sent electronically to his pharmacy. 2. We did discuss in the future decreasing his gabapentin that offering him 100 mg tablets, so he would decrease from 300 to 200 and then decrease to 100 instead of stopping 300 mg altogether, which did increase his pain. The patient may consider this in the future, but currently he believes he is pain free and would like to continue on the current regimen. Time spent with the patient in consultation, reviewing recent studies and clinical notes, physical examination and correlation of findings, medical documentation to determine possible treatment options 13 minutes. Time spent preparing for appointment, reviewing prescription monitoring reports, previous records and proposed treatment options 5 minutes. Time spent preparing and sending electronic prescriptions with collaborating physician, Dr. Jaden Hernandez and documentation of visit and plan of treatment 5 minutes. Total time spent 23 minutes. <ELECTRONICALLY SIGNED> By: Madeline Dominguez 12/02/20 0822 0845 1230 Madeline Dominguez /nt
== END ==
LOC: PAIN 06:52
PROVIDERS: ATTEND Clinical Nurse Specialist Adult Health
DX: M54.12 Radiculopathy, cervical region (principal); I10 Essential (primary) hypertension; Z79.82 Long term (current) use of aspirin; Z79.899 Other long term (current) drug therapy

== ENCOUNTER → 2020-12-13 | Outpatient (CLI) | payer OTHER | LOC: SJCVCIMAG 07:18 | PROVIDERS: ATTEND Internal Medicine Cardiovascular Disease | DX: I51.89 Other ill-defined heart diseases (principal); R93.1 Abnormal findings on diagnostic imaging of heart and coronary circulation; I10 Essential (primary) hypertension; I71.4 Abdominal aortic aneurysm, without rupture; E78.5 Hyperlipidemia, unspecified; Z79.82 Long term (current) use of aspirin; Z79.899 Other long term (current) drug therapy; Z88.2 Allergy status to sulfonamides; Z72.89 Other problems related to lifestyle ==